=== PATIENT | female | born 1995 | race African-American/Black ===

== ENCOUNTER 2020-03-27 11:20 | Emergency (ER) | payer OTHER, SELFPAY ==
[~2020-03-27] VITALS: Ht 170.2 cm; Wt 61.2 kg
[2020-03-27 11:28] VITALS: BP 145/100
[2020-03-27 12:10] VITALS: BP 145/100
== END 2020-03-27 12:11 | disposition home or self-care (01) ==
LOC: MED 11:20 → EEVIPCON 11:20 → MED 12:11
DX: J06.9 Acute upper respiratory infection, unspecified (principal); Z20.828 Contact with and (suspected) exposure to other viral communicable diseases; I10 Essential (primary) hypertension; F41.9 Anxiety disorder, unspecified; Z98.890 Other specified postprocedural states; Z88.8 Allergy status to other drugs, medicaments and biological substances
CPT/HCPCS: 99283; U0003

== ENCOUNTER 2021-07-06 12:05 | Emergency (ER) | payer OTHER, SELFPAY ==
[~2021-07-06] VITALS: Ht 170.2 cm; Wt 59.0 kg
[2021-07-06 12:12] VITALS: BP 150/99
--- NOTE | 2021-07-06 12:16 | NUR ---
AMBULATED TO BED 10
--- NOTE | 2021-07-06 12:18 | NUR ---
PATIENT AMBULATED TO BED 10
--- NOTE | 2021-07-06 12:20 | NUR ---
25/F PRESENTS TO ED WITH C/O OF BUG BITE TO LEFT HAND ON WEDNESDAY. STATES "I THINK IT WAS A MOSQUITO." STATES TODAY HAND IS MORE SWOLLEN, ABLE TO MOVE ALL DIGITS APPROPRIATELY, SLIGHT SWELLING NOTED TO LEFT HAND. SENSATION EQUAL BILATERALLY, CAP REFILL LESS THAN 3 SECONDS. DENIES TINGLING OR NUMBNESS, DENIES ANY OTHER SYMPTOMS.
[2021-07-06] MEDS ORDERED: HYD1C TP (12:28)
[2021-07-06] MEDS ORDERED: PRED20TA5 PO (12:28)
[2021-07-06] MEDS ORDERED: CEPH-588 PO (12:28)
[2021-07-06 12:35] VITALS: BP 150/99
--- NOTE | 2021-07-06 12:35 | NUR ---
Patient discharged with v/s stable. Written and verbal after care instructions given and explained. Patient alert, oriented and verbalized understanding of instructions. Ambulatory with steady gait. All questions addressed prior to discharge. ID band removed. Patient advised to follow up with PMD. Rx of KEFLEX, HYDROCORTISONE AND PREDNISONE given. Patient educated on indication of medication including possible reaction and side effects. Opportunity to ask questions provided and answered.
== END 2021-07-06 12:35 | disposition home or self-care (01) ==
LOC: MED 12:05
DX: S60.562A Insect bite (nonvenomous) of left hand, initial encounter (principal); W57.XXXA Bitten or stung by nonvenomous insect and other nonvenomous arthropods, initial encounter; Y93.89 Activity, other specified; Y92.89 Other specified places as the place of occurrence of the external cause; Y99.8 Other external cause status
CPT/HCPCS: 99283

== ENCOUNTER 2021-12-22 07:58 | Emergency (ER) | payer OTHER ==
[~2021-12-22] VITALS: Ht 170.2 cm; Wt 65.3 kg
[~2021-12-22 07:58] MED LIST: CEPH-588 PO; HYD1C TP; PRED20TA5 PO
[2021-12-22 08:00] VITALS: BP 124/78
--- NOTE | 2021-12-22 08:09 | NUR ---
PT AMBULATED TO ER BED 9
[2021-12-22] MEDS ORDERED: PROMETHAZINE 25 MG TAB PO PRN (08:20)
[2021-12-22] MEDS ORDERED: LACTATED RINGERS 1,000 ML IV ONE (08:35)
[2021-12-22 08:54] LABS: BASOPHILS # (AUTO) 0.1 K/uL (0.00-0.22); BASOPHILS % (AUTO) 1.1 % (0.0-2.0); EOSINOPHILS # (AUTO) 0.1 K/uL (0-0.4); HEMATOCRIT 36.3 % (36-48); HEMOGLOBIN 11.8 g/dL (12.0-16.0); LYMPHOCYTES # (AUTO) 1.3 K/uL (2.5-16.5); LYMPHOCYTES % (AUTO) 19.8 % (20.5-51.1); MEAN CORPUSCULAR HEMOGLOBIN 25 pg (27-31); MEAN CORPUSCULAR HGB CONC 32 g/dL (33-37); MEAN CORPUSCULAR VOLUME 77.6 fL (80-94); MONOCYTES # (AUTO) 0.7 K/uL (0.8-1.0); MONOCYTES % (AUTO) 11.4 % (1.7-9.3); NEUTROPHILS # (AUTO) 4.3 K/uL (1.8-7.7); NEUTROPHILS % (AUTO) 66.7 % (42.2-75.2); PLATELET COUNT (AUTO) 184 K/uL (140-450); RED BLOOD CELL COUNT(AUTO) 4.68 MIL/uL (4.20-5.40); RED CELL DISTRIBUTION WIDTH 16.3 % (11.6-13.7); WHITE BLOOD COUNT (AUTO) 6.4 K/uL (4.8-10.8)
--- NOTE | 2021-12-22 08:58 | NUR ---
PATIENT PRESENTS TO ED WITH NAUSEA & VOMITING. PT STATES SHE HAS BEEN NAUSEATED FOR 1 WEEK AND IS 5 WEEKS . SKIN IS PINK/WARM/DRY; AAOX4 WITH EVEN AND STEADY GAIT; VSS; PATIENT POSITIONED FOR COMFORT; HOB ELEVATED; BEDRAILS UP X2; BED DOWN. ER MD MADE AWARE OF PT STATUS. A1 ALLERGY: HYDRALAZINE & MAGNESIUM MED HX: NONE
[2021-12-22 09:13] LABS: ALBUMIN 3.3 g/dL (3.4-5.0); ANION GAP 12.8 (8-16); CARBON DIOXIDE 23.1 mmol/L (21-32); CREATININE 0.6 mg/dL (0.6-1.3); POTASSIUM 3.9 mmol/L (3.5-5.1); TOTAL BILIRUBIN 0.4 mg/dL (0.0-1.0)
[2021-12-22] MEDS ORDERED: ONDANSETRON 4 MG/2 ML VIAL IVP ONE (09:20)
--- NOTE | 2021-12-22 10:31 | NUR ---
ULTRASOUND AT BEDSIDE
--- NOTE | 2021-12-22 10:42 | NUR ---
US at bed side
[2021-12-22] MEDS ORDERED: DOXY1TCP PO (11:25)
[2021-12-22] MEDS ORDERED: ACETAMINOPHEN EXTRA STRENGTH 500 MG TAB PO ONE (11:40)
[2021-12-22 11:58] VITALS: BP 109/56
--- NOTE | 2021-12-22 11:58 | NUR ---
Patient discharged with v/s stable. Written and verbal after care instructions given and explained. Patient alert, oriented and verbalized understanding of instructions. Ambulatory with steady gait. All questions addressed prior to discharge. ID band removed. Patient advised to follow up with PMD. Rx of DICLEGIS given. Patient educated on indication of medication including possible reaction and side effects. Opportunity to ask questions provided and answered.
== END 2021-12-22 11:58 | disposition home or self-care (01) ==
LOC: MED 07:58
DX: O21.9 Vomiting of pregnancy, unspecified (principal); O26.891 Other specified pregnancy related conditions, first trimester; R51.9 Headache, unspecified; I10 Essential (primary) hypertension; Z88.8 Allergy status to other drugs, medicaments and biological substances
CPT/HCPCS: 36415; 76817; 80053; 81002; 81025; 84702; 85025; 96361; 96374; 99285; J2405; J7120; Q0092; Q0169

== ENCOUNTER 2021-12-27 19:50 | Emergency (ER) | payer OTHER ==
[~2021-12-27] VITALS: Ht 170.2 cm; Wt 63.5 kg
[~2021-12-27 19:50] MED LIST changes: +DOXY1TCP PO
[2021-12-27 20:28] VITALS: BP 150/81
--- NOTE | 2021-12-27 20:36 | NUR ---
PT TAKEN TO BED 3
--- NOTE | 2021-12-27 20:59 | NUR ---
ULTRASOUND AT BEDSIDE.
[2021-12-27] MEDS ORDERED: ONDANSETRON 4 MG ODT PO ONE (21:25)
[2021-12-27] MEDS ORDERED: KETOROLAC 30 MG/ML VIAL IM ONE (21:25)
--- NOTE | 2021-12-27 23:10 | NUR ---
ERMD AT BEDSIDE WITH PATIENT.
[2021-12-28] MEDS ORDERED: CEPH-588 PO (00:10)
[2021-12-28 00:15] VITALS: BP 123/75
== END 2021-12-28 00:15 | disposition home or self-care (01) ==
LOC: MED 19:50
DX: O03.4 Incomplete spontaneous abortion without complication (principal); R10.30 Lower abdominal pain, unspecified; R11.0 Nausea; I10 Essential (primary) hypertension; Z98.890 Other specified postprocedural states; Z79.899 Other long term (current) drug therapy; Z88.8 Allergy status to other drugs, medicaments and biological substances
CPT/HCPCS: 76856; 81025; 96372; 99284; J1885; Q0092; Q0162

== ENCOUNTER 2022-02-03 10:59 | Emergency (ER) | payer OTHER ==
[~2022-02-03] VITALS: Ht 170.2 cm; Wt 64.0 kg
[2022-02-03 11:11] VITALS: BP 137/76
--- NOTE | 2022-02-03 11:14 | NUR ---
Pt ambulated to bed 04 with steady/even gait
--- NOTE | 2022-02-03 11:35 | NUR ---
26 Y/O FEMALE STATES SHE HAS LEFT FOOT PAIN, PATIENT DENIES ANY TRAUMA NOR SPRAIN
[2022-02-03] MEDS ORDERED: IBUPROFEN 600 MG TAB PO ONE (12:15)
[2022-02-03] MEDS ORDERED: IBUP-2213 PO (12:58)
[2022-02-03 13:02] VITALS: BP 129/82
--- NOTE | 2022-02-03 13:02 | NUR ---
Patient discharged with v/s stable. Written and verbal after care instructions given FOR FOOT SPRAIN and explained. Patient verbalized understanding. Ambulatory with steady gait. All questions addressed prior to discharge. Advised to follow up with PMD.
== END 2022-02-03 13:02 | disposition home or self-care (01) ==
LOC: MED 10:59
DX: S93.601A Unspecified sprain of right foot, initial encounter (principal); I10 Essential (primary) hypertension; Z79.1 Long term (current) use of non-steroidal anti-inflammatories (NSAID); Z79.2 Long term (current) use of antibiotics; Z79.899 Other long term (current) drug therapy; Z88.8 Allergy status to other drugs, medicaments and biological substances; X58.XXXA Exposure to other specified factors, initial encounter; Y92.89 Other specified places as the place of occurrence of the external cause; Y93.89 Activity, other specified; Y99.8 Other external cause status
CPT/HCPCS: 73630; 99283; Q0092

== ENCOUNTER 2023-03-21 09:32 | Emergency (ER) | payer OTHER ==
[~2023-03-21] VITALS: Ht 170.2 cm; Wt 68.5 kg
[~2023-03-21 09:32] MED LIST changes: +IBUP-2213 PO
[2023-03-21 09:38] VITALS: BP 138/74
[2023-03-21] MEDS ORDERED: KETOROLAC 30 MG/ML VIAL IM ONE (10:05)
[2023-03-21 10:57] LABS: APPEARANCE,URINE TURBID (CLEAR); BILIRUBIN,URINE NEGATIVE (NEGATIVE); BLOOD, URINE NEGATIVE (NEGATIVE); COLOR,URINE YELLOW (YELLOW); LEUKOCYTE ESTERASE ,URINE NEGATIVE (NEGATIVE); NITRITE, URINE NEGATIVE (NEGATIVE); UGLUCOSE NEGATIVE (NEGATIVE)
--- NOTE | 2023-03-21 11:23 | NUR ---
Pt returned back to bed from US. Awaiting results.
[2023-03-21 12:01] LABS: BASOPHILS % (AUTO) 0.2 % (0.0-2.0); HEMATOCRIT 38.4 % (36-48); HEMOGLOBIN 12.3 g/dL (12.0-16.0); LYMPHOCYTES # (AUTO) 0.9 K/uL (2.5-16.5); LYMPHOCYTES % (AUTO) 6.7 % (20.5-51.1); MEAN CORPUSCULAR HEMOGLOBIN 26 pg (27-31); MEAN CORPUSCULAR HGB CONC 32 g/dL (33-37); MEAN CORPUSCULAR VOLUME 81.3 fL (80-94); MONOCYTES # (AUTO) 0.8 K/uL (0.8-1.0); NEUTROPHILS % (AUTO) 87.1 % (42.2-75.2); PLATELET COUNT (AUTO) 213 K/uL (140-450); RED BLOOD CELL COUNT(AUTO) 4.73 MIL/uL (4.20-5.40); RED CELL DISTRIBUTION WIDTH 15.1 % (11.6-13.7); WHITE BLOOD COUNT (AUTO) 13.8 K/uL (4.8-10.8)
[2023-03-21] MEDS ORDERED: ACET-10509 PO (12:04)
[2023-03-21] MEDS ORDERED: IBUP-2213 PO (12:04)
[2023-03-21] MEDS ORDERED: TAM75 PO (12:04)
[2023-03-21 12:15] LABS: ALBUMIN 3.7 g/dL (3.4-5.0); ANION GAP 11.1 (8-16); CARBON DIOXIDE 26.4 mmol/L (21-32); CREATININE 0.7 mg/dL (0.6-1.3); POTASSIUM 3.5 mmol/L (3.5-5.1); TOTAL BILIRUBIN 0.8 mg/dL (0.0-1.0)
--- NOTE | 2023-03-21 12:20 | NUR ---
Patient discharged with v/s stable. Written and verbal after care instructions given and explained. Patient alert, oriented and verbalized understanding of instructions. Ambulatory with steady gait. All questions addressed prior to discharge. ID band removed. Patient advised to follow up with PMD in 2-3 days. Rx of Tylenol, Motrin, and Tamiflu given. Patient educated on indication of medication including possible reaction and side effects. Opportunity to ask questions provided and answered.
[2023-03-21 12:22] VITALS: BP 126/80
== END 2023-03-21 12:20 | disposition home or self-care (01) ==
LOC: MED 09:32
DX: J10.1 Influenza due to other identified influenza virus with other respiratory manifestations (principal); I10 Essential (primary) hypertension; Z79.899 Other long term (current) drug therapy; Z88.8 Allergy status to other drugs, medicaments and biological substances; Z20.822 Contact with and (suspected) exposure to COVID-19
CPT/HCPCS: 36415; 76705; 80053; 81003; 81025; 83690; 85025; 87426; 87804; 96372; 99285; J1885; Q0092

== ENCOUNTER 2023-03-23 03:42 | Emergency (ER) | payer OTHER ==
[~2023-03-23] VITALS: Ht 170.2 cm; Wt 68.5 kg
[~2023-03-23 03:42] MED LIST changes: +ACET-10509 PO; +TAM75 PO
[2023-03-23 03:47] VITALS: BP 130/93
--- NOTE | 2023-03-23 03:57 | NUR ---
pt to bed 8
--- NOTE | 2023-03-23 04:12 | NUR ---
27 Y/O F bib home c/c sore throat radiating to bilateral ears 10/10 pain with burning sensation. pt stated she has a cough and hurts to swallow. pt has bodyaches xsunday, was seen here x2 days ago. pt is A&Ox4, skin intact, ambulatory. pt stated daughter tested positive for flu but she tested negative. pmh- htn allergies- hydralazine, magnesium
[2023-03-23] MEDS ORDERED: KETOROLAC 15 MG/ML VIAL IM ONE (04:15)
[2023-03-23] MEDS ORDERED: ACETAMINOPHEN 325 MG TAB PO ONE (04:15)
[2023-03-23 04:41] VITALS: BP 130/93
--- NOTE | 2023-03-23 04:41 | NUR ---
Patient discharged with v/s stable. Written and verbal after care instructions given and explained. Patient verbalized understanding. Ambulatory with steady gait. All questions addressed prior to discharge. Advised to follow up with PMD in 2 days. Pt instructed to return if symptoms worsen.
== END 2023-03-23 04:41 | disposition home or self-care (01) ==
LOC: MED 03:42
DX: B34.9 Viral infection, unspecified (principal); J02.9 Acute pharyngitis, unspecified; I10 Essential (primary) hypertension; Z88.8 Allergy status to other drugs, medicaments and biological substances; Z79.899 Other long term (current) drug therapy; Z98.890 Other specified postprocedural states
CPT/HCPCS: 96372; 99283; J1885

== ENCOUNTER 2023-04-12 18:14 | Emergency (ER) | payer OTHER ==
[~2023-04-12] VITALS: Ht 167.6 cm; Wt 59.9 kg
[2023-04-12 18:29] VITALS: BP 142/80; PULSE 65; RESP 18; TEMP 98.4; O2SAT 98
[2023-04-12] MEDS ORDERED: ONDA-188 SL (19:40)
[2023-04-12] MEDS ORDERED: ACET-10509 PO (19:40)
--- NOTE | 2023-04-12 20:06 | NUR ---
Patient discharged with v/s stable. Written and verbal after care instructions given and explained. Patient alert, oriented and verbalized understanding of instructions. Ambulatory with steady gait. All questions addressed prior to discharge. ID band removed. Patient advised to follow up with PMD. Rx of TYLENOL AND ZOFRAN given. Patient educated on indication of medication including possible reaction and side effects. Opportunity to ask questions provided and answered.
[2023-04-12 20:11] LABS: APPEARANCE,URINE CLEAR (CLEAR); BILIRUBIN,URINE NEGATIVE (NEGATIVE); BLOOD, URINE TRACE-I (NEGATIVE); COLOR,URINE YELLOW (YELLOW); LEUKOCYTE ESTERASE ,URINE 2+ (NEGATIVE); NITRITE, URINE NEGATIVE (NEGATIVE); UGLUCOSE NEGATIVE (NEGATIVE)
[2023-04-13] MEDS ORDERED: CEPH-588 PO (15:56)
== END 2023-04-12 20:06 | disposition home or self-care (01) ==
LOC: MED 18:14
DX: N39.0 Urinary tract infection, site not specified (principal); R10.2 Pelvic and perineal pain; Z79.899 Other long term (current) drug therapy
CPT/HCPCS: 81001; 81025; 87086; 99283

== ENCOUNTER 2023-08-05 19:38 | Emergency (ER) | payer OTHER ==
[~2023-08-05] VITALS: Ht 170.2 cm; Wt 68.9 kg
[~2023-08-05 19:38] MED LIST changes: +ONDA-188 SL
[2023-08-05 19:53] VITALS: BP 138/88; PULSE 60; RESP 16; TEMP 97.4; O2SAT 100
[2023-08-05] MEDS ORDERED: KETOROLAC 60 MG/2 ML VIAL IM ONE (20:00)
[2023-08-05 20:10] VITALS: BP 137/78; RESP 15; O2SAT 98
[2023-08-05 20:26] LABS: APPEARANCE,URINE CLEAR (CLEAR); BILIRUBIN,URINE NEGATIVE (NEGATIVE); BLOOD, URINE NEGATIVE (NEGATIVE); COLOR,URINE YELLOW (YELLOW); LEUKOCYTE ESTERASE ,URINE NEGATIVE (NEGATIVE); NITRITE, URINE NEGATIVE (NEGATIVE); PH,URINE 6.5 (5.0-9.0); PROTEIN,URINE NEGATIVE (NEGATIVE); UGLUCOSE NEGATIVE (NEGATIVE); UROBILINOGEN,URINE 0.2 EU/dL (0.2 - 1)
[2023-08-05] MEDS ORDERED: IBUP-2213 PO (21:15)
[2023-08-05] MEDS ORDERED: CYCL-711 PO (21:15)
== END 2023-08-05 21:51 | disposition home or self-care (01) ==
LOC: MED 19:38
DX: M54.50 Low back pain, unspecified (principal); Z88.8 Allergy status to other drugs, medicaments and biological substances; Z79.899 Other long term (current) drug therapy; Z98.890 Other specified postprocedural states
CPT/HCPCS: 81003; 81025; 96372; 99283; J1885

== ENCOUNTER 2023-11-02 22:41 | Emergency (ER) | payer OTHER ==
[~2023-11-02] VITALS: Ht 170.2 cm; Wt 68.0 kg
[~2023-11-02 22:41] MED LIST changes: +CYCL-711 PO
[2023-11-02 22:48] VITALS: BP 131/94; PULSE 78; RESP 21; TEMP 98.2; O2SAT 99
[2023-11-02 23:44] LABS: FLU A ANTIGEN negative (NEGATIVE); FLU B ANTIGEN NEGATIVE (NEGATIVE)
[2023-11-03] MEDS ORDERED: TAM75 PO (02:04)
[2023-11-03] MEDS ORDERED: BENZ200C4 PO (02:06)
[2023-11-03] MEDS ORDERED: ALBU0.0912 IH (02:06)
[2023-11-03] MEDS ORDERED: MUC600 PO (02:06)
[2023-11-03] MEDS ORDERED: PROM118S5 PO (02:06)
[2023-11-03] MEDS ORDERED: METH4TAB1 PO (02:06)
== END 2023-11-03 02:25 | disposition home or self-care (01) ==
LOC: MED 22:41
DX: J06.9 Acute upper respiratory infection, unspecified (principal); Z20.828 Contact with and (suspected) exposure to other viral communicable diseases; Z20.822 Contact with and (suspected) exposure to COVID-19; Z79.899 Other long term (current) drug therapy; Z79.2 Long term (current) use of antibiotics; Z79.1 Long term (current) use of non-steroidal anti-inflammatories (NSAID); Z88.8 Allergy status to other drugs, medicaments and biological substances
CPT/HCPCS: 99283

== ENCOUNTER 2024-04-14 19:32 | Emergency (ER) | payer OTHER ==
[~2024-04-14] VITALS: Ht 170.2 cm; Wt 67.4 kg
[~2024-04-14 19:32] MED LIST changes: +ALBU0.0912 IH; +BENZ200C4 PO; +METH4TAB1 PO; +MUC600 PO; +PROM118S5 PO
[2024-04-14 19:46] VITALS: BP 124/71; PULSE 79; RESP 14; TEMP 97.1; O2SAT 99
[2024-04-14 20:30] VITALS: BP 124/71; PULSE 79; RESP 14; TEMP 97.1; O2SAT 99
[2024-04-14] MEDS ORDERED: CYCL-711 PO (20:38)
[2024-04-14] MEDS ORDERED: NAPR-337 PO (20:38)
[2024-04-14] MEDS: KETOROLAC 60 MG/2 ML VIAL IM ONE (20:55)
== END 2024-04-14 20:58 | disposition home or self-care (01) ==
LOC: MED 19:32
DX: M54.50 Low back pain, unspecified (principal); Z79.1 Long term (current) use of non-steroidal anti-inflammatories (NSAID); Z79.2 Long term (current) use of antibiotics; Z79.899 Other long term (current) drug therapy; Z88.8 Allergy status to other drugs, medicaments and biological substances
CPT/HCPCS: 81025; 96372; 99283; J1885